=== PATIENT | female | born 1990 | race African-American/Black ===

== ENCOUNTER 2016-08-02 15:02 | Emergency (ER) | payer MEDICAID ==
[~2016-08-02] VITALS: Ht 170.2 cm; Wt 77.1 kg
[2016-08-02 15:48] VITALS: BP 147/79
--- NOTE | 2016-08-02 16:53 | NUR ---
PATIENT PRESENTS TO ED WITH ABDOMINAL PAIN X 5 MONTHS .DENIES N/V/D; SKIN IS PINK/WARM/DRY; AAOX4 WITH EVEN AND STEADY GAIT; LUNGS CLEAR BL; HR EVEN AND REGULAR; PT DENIES ANY FEVER, CP, SOB, OR COUGH AT THIS TIME; PATIENT STATES PAIN OF 0/10 AT THIS TIME; PATIENT POSITIONED FOR COMFORT; HOB ELEVATED; BEDRAILS UP X2; BED DOWN. ER MD MADE AWARE OF PT STATUS. PT SAID I FEEL OK NOW BUT WHEN IM IN PAIN I FEEL LIKE SOMETHING IS MOVING IN MY STOMACH
--- NOTE | 2016-08-02 17:10 | NUR ---
DR. MORENO AWARE OF THE RESULT OF URINE DIPSTICK AND PREG
--- NOTE | 2016-08-02 17:14 | NUR ---
DR. MORENO AT BEDSIDE
--- NOTE | 2016-08-02 17:25 | NUR ---
PT FOR CT VIA WHEELCHAIR, OT AAO.
[2016-08-02] MEDS ORDERED: IBUPROFEN 800 MG TAB PO ONE (17:30)
--- NOTE | 2016-08-02 17:45 | NUR ---
PT BACK FROM PT AAO.
--- NOTE | 2016-08-02 18:32 | NUR ---
TALKED TO DR. MORENO PT WANTS TO TALK TO HIM,MD SAID I WILL BE THERE, I ALSO WANT TO TALK TO HER
[2016-08-02 18:42] VITALS: BP 117/72
--- NOTE | 2016-08-02 18:43 | NUR ---
Patient discharged with v/s stable. Written and verbal after care instructions given and explained. Patient alert, oriented and verbalized understanding of instructions. Ambulatory with steady gait. All questions addressed prior to discharge. ID band removed. Patient advised to follow up with PMD. Rx of LACTULOSE,TRAMADOL given. Patient educated on indication of medication including possible reaction and side effects. Opportunity to ask questions provided and answered.PHONE NUMBER OF DR. KRISTY RANGEL GIVEN
== END 2016-08-02 18:43 | disposition home or self-care (01) ==
LOC: MED 15:12
DX: D27.0 Benign neoplasm of right ovary (principal); K59.00 Constipation, unspecified

== ENCOUNTER 2016-10-21 17:43 | Emergency (ER) | payer MEDICAID, OTHER ==
[~2016-10-21] VITALS: Ht 167.6 cm; Wt 80.7 kg
[2016-10-21 18:03] VITALS: BP 136/74
--- NOTE | 2016-10-21 19:46 | NUR ---
PT TAKEN TO BED 7
[2016-10-21] MEDS ORDERED: HYDROcodone/APAP 5/325 MG 1 TAB TAB PO ONE (19:50)
[2016-10-21] MEDS ORDERED: ONDANSETRON 4 MG ODT PO ONE (19:50)
--- NOTE | 2016-10-21 19:50 | NUR ---
25Y F PRESENTED TO ER C/O OF ABDOMINAL PAIN X2 DAYS WITH N/V AND X4 DIARRHEA. PAIN 6/10 IN SCALE.
--- NOTE | 2016-10-21 19:53 | NUR ---
Dr. Wheat evaluating patient at bedside.
[2016-10-21] MEDS ORDERED: ACETAMINOPHEN EXTRA STRENGTH 500 MG TAB PO ONE (20:00)
--- NOTE | 2016-10-21 20:00 | NUR ---
PT REFUSED NORCO. DR RUIZ IS AWARE AND D/C THE NORCO. MED NOT ADMINISTERED AND RETURNED TO BIN.
[2016-10-21 20:55] VITALS: BP 129/70
--- NOTE | 2016-10-21 20:55 | NUR ---
Patient discharged with v/s stable. Written and verbal after care instructions given and explained BY DR RUIZ. Patient alert, oriented and verbalized understanding of instructions. Ambulatory with steady gait. All questions addressed prior to discharge. ID band removed. Patient advised to follow up with PMD. Rx of ZOFRAN ODT given. Patient educated on indication of medication including possible reaction and side effects. Opportunity to ask questions provided and answered.
== END 2016-10-21 20:55 | disposition home or self-care (01) ==
LOC: MED 17:43
DX: R11.2 Nausea with vomiting, unspecified (principal); R19.7 Diarrhea, unspecified
CPT/HCPCS: 36415; 80053; 81001; 81025; 85025; 87086; 99284; S0119